=== PATIENT | female | born 1965 | race Caucasian/White ===

== ENCOUNTER 2023-05-26 07:52 | Outpatient (CLI) | payer OTHER, SELFPAY | END 2023-05-26 07:53 | disposition home or self-care (01) | LOC: NFLDREF 05-28 10:18 | PROVIDERS: PCP Internal Medicine; Referring Provider Internal Medicine; Visit Provider Internal Medicine | DX: E78.5 Hyperlipidemia, unspecified (principal) | CPT/HCPCS: 80061 ==

== ENCOUNTER 2023-09-20 16:05 | Outpatient (CLI) | payer OTHER, SELFPAY ==
--- OUTSIDE RECORDS SUMMARY | 2023-09-20 16:08 | XMS_ITS | Clinical Summary ---
Author Organization [employer] Address [place], [place] [address] Care Team Providers Care Coremaker Pipe Name Role Phone Abilio [facility] Phys Of Primary Care Provider Un available Allergies Active Allergy Reactions Criticality Noted Date Comments Budesonide Headache 01/03/2009 Latex Rash 12/20/2008 Polyethylene Glycol 3350 Anaphylaxis High 04/02/2021 Morphine Rash 04/24/2010 Penicillins Rash 04/28/2008 Oxycodone-Acetaminophen 12/20/2008 Breathing problems Sulfa (Sulfonamide Antibiotics) Rash 04/28/2008 Hydrocodone-Acetaminoph en *None-Radiology Only 12/20/2008 Breathing problems Medications Medication Sig Dispensed Refills Start Date End Date Status cetirizine (ZYRTEC) 10 mg tablet Take 1 tablet by mouth once daily. 0 12/26/2012 Active omega-3 fatty acids (FISH OIL) cap Active cholecalciferol, Vitamin D3, 10,000 unit capsule Daily Active montelukast (SINGULAIR) 10 mg tabletIndications:A llergic rhinitis, unspecified seasonality, unspecified trigger Take 1 Tablet (10 mg) by mouth every morning. 90 Tablet 3 03/13/2021 Active EPINEPHrine (Auvi-Q) 0.3 mg/0.3 mL injectionIndication s:Multiple environmental allergies,History of drug-induced anaphylaxis Inject 0.3 mg intramuscular one time if needed for Allergic Reaction. Inject 0.3 mg intramuscular one time if needed for Allergic Reaction for up to 1 dose. 2 Each 04/07/2021 Active fluticasone propion-salmeteroL (Advair HFA) 115-21 mcg/actuation inhalerIndications: Asthma, unspecified asthma severity, unspecified whether complicated, unspecified whether persistent Inhale 1 Puff by mouth every 12 hours. 1 Each 3 04/02/2022 Active pantoprazole (PROTONIX) 40 mg delayed-release tabletIndications:G astroesophageal reflux disease, unspecified whether esophagitis present Take 1 Tablet (40 mg) by mouth once daily before a meal. 90 Tablet 3 04/02/2022 Active linaCLOtide (Linzess) 145 mcg cap capsuleIndications: Constipation, unspecified constipation type Take 1 Capsule (145 mcg) by mouth once daily. 30 Capsule 11 07/22/2022 Active albuterol HFA (ProAir HFA) 90 mcg/actuation inhalerIndications: Asthma, unspecified asthma severity, unspecified whether complicated, unspecified whether persistent Inhale 2 Puffs by mouth every 4 hours if needed for Shortness of Breath 1st choice. 1 Each 3 08/13/2022 Active albuterol (PROVENTIL) 0.083 % neb solutionIndications :SOB (shortness of breath) Inhale 3 mL (2.5 mg) via a nebulizer every 6 hours if needed for Wheezing 2nd choice. 90 mL 3 08/13/2022 Active fluticasone (50 mcg per actuation) nasal solution (FLONASE)Indication s:Recurrent maxillary sinusitis INHALE 1 SPRAY IN EACH NOSTRIL DAILY 48 g 3 10/07/2022 Active durable medical equipment (DME)Indications:Pl loulou fasciitis, left Custom functional orthotics, history of plantar fasciitis 1 Each 01/05/2023 Active cyclobenzaprine (FLEXERIL) 5 mg tabletIndications:F ibromyalgia TAKE 1 TABLET (5 MG) BY MOUTH AT BEDTIME IF NEEDED FOR MUSCLE SPASM. 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 Has been seen at [facility] and recommended conservative treatment at this time. Allergic rhinitis 08/13/2014 GERD (gastroesophageal reflux disease) 4 Overview: EGD 12/2013 normal, continue proton pump inhibitor and ranitadine Asthma 12/26/2012 H/O craniotomy 12/09/2012 Diverticulitis 06/19/2011 Cholesteatoma of ear, right 04/16/2011 Endometriosis 04/16/2011 Intestinal infection due to Clostridium difficil e 12/24/2008 Crohn's disease of large bowel 12/24/2008 Overview: Colonoscopy 05/2010 normal repeat in 5 years Colonoscopy 03/2020 polyp, no active Crohn's disease, repeat in 5 years Moderate mixed hyperlipidemia not requiring stat in therapy 08/20/2006 Encounters Date Type Department Care Team Description 09/20/2023 Refill [facility] [address] [place] [address] Carmella Joshua MD Refill Request (Advair Hfa) from Last 3 Months Immunizations Name Administration Dates Next Due COVID-19 vaccine ([facility] NTAlta Analog 30mcg/0.3mL) PF, MDV 04/02/2020,03/05/2020 Influenza RIV4 (Age 18+ Year s) PRESERV FREE 11/30/2018 Influenza Virus, Unspecified 12/13/2016,12/14/19 16 Influenza, IIV3 (Age 6-35 mos) 12/20/2019,2017 Influenza, IIV4 01/20/2022, 9,12/24/2016,2015,12/09/2011 Influenza, IIV4 (=>6mos) MDV 11/27/2020 Tdap 10/23/2016,04/21/2005 Zoster (Shingrix-RZV, recombinant) 06/06/2020, Zoster (Zostavax-ZVL, live) 01/29/2015 Family History Medical History Relation Name Comments Cancer-breast No Family History Cancer-ovarian No Family History Social History Tobacco Use Types Packs/Day Years Used Date Smoking Tobacco: Never Smokeless Tobacco: Never Tobacco Cessation:Counseling Given: No Alcohol Use Standard Drinks/Week Comments Yes 0 (1 standard drink = 0.6 oz pur e alcohol) occ PHQ-2 Answer Date Recorded PHQ-2 TOTAL SCORE 0 04/02/2022 Social Connections Answer Date Recorded Frequency of Communication with Friends and Fami ly Not on file 02/19/2021 Financial Resource Strain Answer Date R ecorded Difficulty of Paying Living Expenses Not on file 02/19/2021 Difficulty of Paying Living Expenses Not on file 02/19/2021 Sex and Gender Information Value Date Recorded Sex Assigned at Not on file Gender Identity Not on file Sexual Orientation Not on file Obstetrics History Last Filed Vital Signs Vital Sign Reading Time Taken Comments Blood Pressure 143/86 07/22/2022 2:33 PM CDT Pulse 82 07/22/2022 2:33 PM CDT Temperature 37.1 ??C (98.7 ??F) 04/02/2021 2:15 PM CS T Respiratory Rate - - Oxygen Saturation 96% 07/22/2022 2:33 PM CDT Inhaled Oxygen Concentration - - Weight 70.2 kg (154 lb 12.8 oz) 07/22/2022 2:33 PM CDT Height 160.8 cm (5' 3.31) 04/02/2022 9:10 AM CS T Body Mass Index 27.16 04/02/2022 9:10 AM DIRECTOR BIOSTATISTICS Plan of Treatment Health Maintenance Due Date Last Done Comments HIV for age 15-65 08/26/1979 COVID-19 vaccine series ( season) 2022 04/02/2020, 03/05/2020 BMI (ht and wt on same day) for age 18+ 04/02/2023 04/02/2022, 10/30/2021, 03/13/2021, Additional history exists Depression screening for age 12+ 04/02/2023 04/02/2022, 03/13/2021, 02/09/2020, Additional history exists Mammogram for age 45-75 04/16/2023 04/16/19 23, 03/13/2021, 02/15/2020, Additional history exists Influenza for age 50-64 10/31/2023 01/21/20 22, 11/27/2020, 12/07/2018, Additional history exists Colonoscopy through age 75 03/28/202503/28, 03/28/2020, 03/28/2020, Additional history exists Pap test for age 21-65 04/02/2025 , 10/23/2016, 10/23/2016, Additional history exists Tetanus booster 10/23/2026 10/23/2016, 04/21/2005 Lipids for age 45-75 04/08/2027 04/08/2022, 03/13/2021, 02/08/2020, Additional history exists Tdap Completed 10/23/2016, 04/21/2005 Hepatitis C screening for age 18-79 Completed 02/08/2020 Zoster (shingles) series for age 50+ Completed 06/06/2020, 02/15/2020, 01/29/2015 Pneumococcal series for age 6-64 Aged Out No longer eligible based on patient's age to complete this topic Procedures Procedure Name Priority Date/Time Associated Diagnosis Comments XR MAMMO OLAYINKA BILAT SCREEN Routine 04/16/2022 11:11 AM DIRECTOR BIOSTATISTICS Visit for screening mammogram LC LIPID PANEL AND CHOL/HDL RATIO Routine 04/08/2022 7:12 AM DIRECTOR BIOSTATISTICS Hyperlipidemia, unspecified hyperlipidemia type HPV THIN PREP Routine 04/02/2022 10:00 AM DIRECTOR BIOSTATISTICS Screening for cervical cancer COLONOSCOPY SCREENING Routine 03/28/2020 8:29 AM DIRECTOR BIOSTATISTICS Polyp of colon, unspecified part of colon, unspecified type ANTI HCV Routine 02/08/2020 10:57 AM DIRECTOR BIOSTATISTICS Encounter for hepatitis C screening test for low risk patient from Last 3 Months or Most Recently Relevant to Health Maintenance Results * XR MAMMO OLAYINKA BILAT SCREEN (04/16/2022 11:11 AM DIRECTOR BIOSTATISTICS) Anatomical Region Laterality Modality BREASTS, Breast Left, Breast Right Bilateral Mammography Impressions 04/16/2022 3:55 PM DIRECTOR BIOSTATISTICS ??There is no radiographic evidence for malignancy. ??Recommend annual mammograms. MAMMOGRAM ASSESSMENT: ??ACR 1 Negative PATIENTS: You will also receive a letter with your examination results in an easy to read format. ??If you have questions about your results, please contact your referring provider. Narrative 04/16/2022 3:55 PM DIRECTOR BIOSTATISTICS For Patients: As a result of the Century Cures Act, medical imaging exams and procedure reports are released immediately into your electronic medical record. You may view this report before your referring provider. If you have questions, please contact your health care provider. XR MAMMO OLAYINKA BILAT SCREEN [[id number]] CLINICAL HISTORY: ??This is an asymptomatic 56 y.o. patient. INDICATION FOR EXAM: Mammogram Screening. TECHNIQUE: CC & MLO views were obtained. ??This study was evaluated with the assistance of Computer-Aided Detection. Breast Tomosynthesis was used in interpretation. COMPARISON FILM: Yes 03/13/21 [facility] 02/15/20 [facility] FINDINGS: ??The breasts have scattered areas of fibroglandular density. There are no dominant masses, suspicious micro calcifications or areas of architectural distortion. Carmella Joshua MD MAMMO * (ABNORMAL) LC LIPID PANEL AND CHOL/HDL RATIO (04/08/2022 7:12 AM DIRECTOR BIOSTATISTICS) Cholesterol, Total 252(H) 100 - 199 mg/dL 04/10/2022 11:09 AM [facility] Triglycerides 120 0 - 149 mg/dL 04/10/2022 11:09 AM [facility] ([facility]) HDL Cholesterol 65 >39 mg/dL 3 11:09 AM [facility] ([facility]) VLDL Cholesterol Tuan 21 5 - 40 mg/dL 04/10/2022 11:09 AM [facility] ([facility]) LDL Chol Calc (NIH) 166(H) 0 - 99 mg/dL 04/10/2022 11:09 AM [facility] ([facility]) T. Chol/HDL Ratio 3.9 0.0 - 4.4 ratio 04/10/2022 11:09 AM DIRECTOR BIOSTATISTICS [facility] ([facility]) Comment: ?T. Chol/HDL Ratio ?Men ??Women ?1/2 Avg.Risk ??3.4 ?3.3 ?Avg.Risk ??5.0 ?4.4 ? 2X Avg.Risk ??9.6 ?7.1 ? 3X Avg.Risk 23.4 ?? 11.0 Blood BLOOD SPECIMEN / Unknown Venipuncture / Unknown 04/08/2022 7:12 AM DIRECTOR BIOSTATISTICS 04/08/2022 7:15 AM DIRECTOR BIOSTATISTICS Narrative [facility] ([facility]) - 04/10/2022 11:09 AM DIRECTOR BIOSTATISTICS Performed at: [facility] [address] [place], [place] ??[id number] Snipper: Chito Mcmillan MD, Phone: ??[phone] Carmella Joshua MD SEND OUTS [facility] ([facility]) [facility] [place] [address], [place] * HPV HIGH RISK (04/02/2022 10:00 AM DIRECTOR BIOSTATISTICS) TYPE 16 Negative Negative 04/06/2022 2:36 PM DIRECTOR BIOSTATISTICS [facility] TYPE 18 Negative Negative 04/06/2022 2:[address] [facility] OTHER HIGH RISK TYPES Negative Negative 04/06/2022 2:[address] [facility] Other (Cervical) Non-Blood / Unknown 04/02/2022 10:00 AM DIRECTOR BIOSTATISTICS 04/02/2022 5:09 PM DIRECTOR BIOSTATISTICS Narrative [facility] - 04/06/2022 2:36 PM DIRECTOR BIOSTATISTICS HPV types 16, 18, 31, 33, 35, 39, 45, 51, 52, 56, 58, 59, 66 and 68 DNA were undetectable or below the pre-set threshold. Methodology: [employer] 4800 HPV Test Carmella Joshua MD MICROBIOLOGY [facility] [address] [place] [address], [place] * COLONOSCOPY (03/28/2020 8:58 AM DIRECTOR BIOSTATISTICS) 03/28/2020 8:58 AM DIRECTOR BIOSTATISTICS Narrative Transcriptions Zane Buchanan MD - 03/28/2020 10:01 AM CST Patient Name: Sun Winter Procedure Date: 03/28/2020 Gender: Female Date of : 1965 Admit Type: Outpatient Procedure: Colonoscopy Proceduralist: Zane Buchanan MD , Mary Sapp (Nurse) Referring MD: Carmella Joshua Indications/Pre-Op Diagnosis: High risk colon cancer surveillance:Personal history of sessile serrated colon polyp(less than 10 mm in size) with no dysplasia, High risk colon cancer surveillance: Crohn'scolitis of 8 (or more) years duration with one-third (or more) of the colon involved Medications: Fentanyl 100 micrograms IV, Midazolam 3 mgIV, The level of sedation administered wasmoderate Procedure Description: The patient had risks, benefits and alternatives explained to andgave informed consent. The patient had a stable cardiopulmonary status and judged an adequate candidate for conscious sedation. The PCF-Q290AL [id number] was passed through the anus and advanced to 4cm into the ileum. The colonoscopy was performed without difficulty. The patient tolerated the procedure well. The quality of the bowel preparation was good. The terminal ileum, ileocecal valve,appendiceal orifice, and rectum were photographed. Complications: No immediate complications. Estimated Blood Loss & Specimen: Estimated blood loss: none. Specimen collected - Yes and sent to Laboratory Findings: The perianal and digital rectal examinations were normal. The terminal ileum appeared normal. A 1 mm polyp was found in the cecum. The polyp was sessile. The polyp was removed with a cold biopsy forceps. Resection and retrieval were complete. A 2 mm polyp was found in the proximal ascending colon. The polyp was sessile. The polyp was removed with a cold biopsy forceps. Resectionand retrieval were complete. A few small-mouthed diverticula were found in the sigmoid colon and descending colon. There was evidence of a prior end-to-end colo-colonic anastomosis inthe recto-sigmoid colon. This was patent and was characterized by healthy appearing mucosa. These biopsies were obtained randomly (in a non-targeted manner) for Crohn's disease surveillance. The exam was otherwise without abnormality on direct and retroflexion views. Impressions/Post-Op Diagnosis: - The examined portion of the ileum was normal. - One 1 mm polyp in the cecum, removed with a cold biopsy forceps. Resected and retrieved. - One 2 mm polyp in the proximal ascending colon, removed with a cold biopsy forceps. Resected and retrieved. - Mild diverticulosis in the sigmoid colon and in the descendingcolon. - Patent end-to-end colo-colonic anastomosis, characterized byhealthy appearing mucosa. - The examination was otherwise normal on direct and retroflexionviews. Recommendation: - Patient has a contact number available for emergencies. The signsand symptoms of potential delayed complications were discussed with the patient. Return to normal activities tomorrow. Written discharge instructions were provided to the patient. - Resume previous diet. - Continue present medications. - Await pathology results. - Repeat colonoscopy for surveillance based on pathology results. Moderate Sedation: Moderate (conscious) sedation was administered by the endoscopy nurse and supervised by the endoscopist. The following parameters were monitored: oxygen saturation, heart rate, respiratory rate, blood pressure, adequacy of pulmonary ventilation and reponse to care. Please refer to the patient's medical record flowsheets and nursing notes for moderate sedation details. Total physician intraservice time was 26 minutes. Zane Buchanan MD 03/28/2020 10:01:25 AM This report has been signed electronically. Note Initiated On: 03/28/2020 8:58 AM Scope In: 9:26:52 AM Scope Withdrawal Time 0 hours 19 minutes 5 seconds Scope Out: 9:50:27 AM Zane Buchanan MD PROCEDURE ORD * ANTI HCV (02/08/2020 10:57 AM DIRECTOR BIOSTATISTICS) HEPATITIS C ANTIBODY Non-React breanna Non-React breanna 02/08/2020 6:14 PM DIRECTOR BIOSTATISTICS [facility] Comment:Antibodies to HCV no t detected; does not exclude the possibility of exposure to HCV. Blood BLOOD SPECIMEN / Unknown Venipuncture / Unknown 02/08/2020 10:57 AM DIRECTOR BIOSTATISTICS 02/08/2020 10:57 AM DIRECTOR BIOSTATISTICS Carmella Joshua MD [facility] [address] [place] [address], [place] from Last 3 Months or Most Recently Relevant to Health Maintenance Care Teams Coremaker Pipe Relationship Specialty Start Date End Date Urbano Knox Of PCP - General 05/19/23
== END 2023-09-20 16:06 | disposition home or self-care (01) ==
PROVIDERS: PCP Internal Medicine; Visit Provider Internal Medicine
DX: L65.9 Nonscarring hair loss, unspecified (principal)
CPT/HCPCS: 80053; 82607; 82728; 83735; 84443

== ENCOUNTER 2023-09-21 16:26 | Outpatient (CLI) | payer OTHER, SELFPAY ==
--- OUTSIDE RECORDS SUMMARY | 2023-09-21 16:28 | XMS_ITS | Clinical Summary ---
Author Organization [employer] Address [place], [place] [address] Care Team Providers Care Oracle E Business Developer Name Role Phone Abilio [facility] Phys Of Primary Care Provider Un available [...] Associated with vertigo. Has been seen at [facility] and recommended conservative treatment at this time. [...] Type Department Care Team Description 09/20/2023 Refill [facility] [address] [place] [address] Carmella Joshua MD Refill Request (Advair Hfa) from Last 3 Months Immunizations Name Administration Dates Next Due COVID-19 vaccine ([employer] NTPivot3 30mcg/0.3mL) PF, MDV 04/02/2020,03/05/2020 Influenza RIV4 (Age [...] Body Mass Index 27.16 04/02/2022 9:10 AM BROOM BUNDLER Plan of Treatment Health Maintenance Due Date [...] OLAYINKA BILAT SCREEN Routine 04/16/2022 11:11 AM BROOM BUNDLER Visit for screening mammogram LC LIPID PANEL AND CHOL/HDL RATIO Routine 04/08/2022 7:12 AM BROOM BUNDLER Hyperlipidemia, unspecified hyperlipidemia type HPV THIN PREP Routine 04/02/2022 10:00 AM BROOM BUNDLER Screening for cervical cancer COLONOSCOPY SCREENING Routine 03/28/2020 8:29 AM BROOM BUNDLER Polyp of colon, unspecified part of colon, unspecified type ANTI HCV Routine 02/08/2020 10:57 AM BROOM BUNDLER Encounter for hepatitis C screening test for low risk patient from Last 3 Months or Most Recently Relevant to Health Maintenance Results * XR MAMMO OLAYINKA BILAT SCREEN (04/16/2022 11:11 AM BROOM BUNDLER) Anatomical Region Laterality Modality BREASTS, Breast Left, Breast Right Bilateral Mammography Impressions 04/16/2022 3:55 PM BROOM BUNDLER ??There is no radiographic evidence for malignancy. ??Recommend annual mammograms. MAMMOGRAM ASSESSMENT: ??ACR 1 Negative PATIENTS: You will also receive a letter with your examination results in an easy to read format. ??If you have questions about your results, please contact your referring provider. Narrative 04/16/2022 3:55 PM BROOM BUNDLER For Patients: As a result of the Century Cures Act, medical imaging exams and procedure reports are released immediately into your electronic medical record. You may view this report before your referring provider. If you have questions, please contact your health care provider. XR MAMMO OLAYINKA BILAT SCREEN [[id number]] CLINICAL HISTORY: ??This is an asymptomatic 56 [...] PANEL AND CHOL/HDL RATIO (04/08/2022 7:12 AM BROOM BUNDLER) Cholesterol, Total 252(H) 100 - 199 mg/dL 04/10/2022 11:09 AM [facility] ([facility]) Triglycerides 120 0 - 149 mg/dL 04/10/2022 11:09 AM [facility] ([facility]) HDL Cholesterol 65 >39 mg/dL 3 11:09 AM [facility] ([facility]) VLDL Cholesterol Tuan 21 5 - 40 mg/dL 04/10/2022 11:09 AM [facility] ([facility]) LDL Chol Calc (NIH) 166(H) 0 - 99 mg/dL 04/10/2022 11:09 AM [facility] ([facility]) T. Chol/HDL Ratio 3.9 0.0 - 4.4 ratio 04/10/2022 11:09 AM BROOM BUNDLER [facility] ([facility]) Comment: ?T. Chol/HDL Ratio ?Men ??Women ?1/2 Avg.Risk ??3.4 ?3.3 ?Avg.Risk ??5.0 ?4.4 ? 2X Avg.Risk ??9.6 ?7.1 ? 3X Avg.Risk 23.4 ?? 11.0 Blood BLOOD SPECIMEN / Unknown Venipuncture / Unknown 04/08/2022 7:12 AM BROOM BUNDLER 04/08/2022 7:15 AM BROOM BUNDLER Narrative [facility] ([facility]) - 04/10/2022 11:09 AM BROOM BUNDLER Performed at: ??01 - [facility] [address], [place] ??[id number] Assistant Professor Of Education: Chito Mcmillan MD, Phone: ??[phone] Carmella Joshua MD SEND OUTS [facility] ([facility]) [facility] [place] [address], [place] * HPV HIGH RISK (04/02/2022 10:00 AM BROOM BUNDLER) TYPE 16 Negative Negative 04/06/2022 2:36 PM BROOM BUNDLER [facility] TYPE 18 Negative Negative 04/06/2022 2:36 PM BROOM BUNDLER [facility] OTHER HIGH RISK TYPES Negative Negative 04/06/2022 2:36 PM BROOM BUNDLER [facility] Other (Cervical) Non-Blood / Unknown 04/02/2022 10:00 AM BROOM BUNDLER 04/02/2022 5:09 PM BROOM BUNDLER Narrative [facility] - 04/06/2022 2:36 PM BROOM BUNDLER HPV types 16, 18, 31, 33, 35, 39, 45, 51, 52, 56, 58, 59, 66 and 68 DNA were undetectable or below the pre-set threshold. Methodology: [employer] 4800 HPV Test Carmella Joshua MD MICROBIOLOGY [facility] [address] [place] [address], [place] * COLONOSCOPY (03/28/2020 8:58 AM BROOM BUNDLER) 03/28/2020 8:58 AM BROOM BUNDLER Narrative Transcriptions Zane Buchanan MD - 03/28/2020 [...] adequate candidate for conscious sedation. The PCF-Q290AL [id number] was passed through the anus and advanced [...] ORD * ANTI HCV (02/08/2020 10:57 AM BROOM BUNDLER) HEPATITIS C ANTIBODY Non-React breanna Non-React breanna 02/08/2020 6:14 PM BROOM BUNDLER [facility] Comment:Antibodies to HCV no t detected; does not exclude the possibility of exposure to HCV. Blood BLOOD SPECIMEN / Unknown Venipuncture / Unknown 02/08/2020 10:57 AM BROOM BUNDLER 02/08/2020 10:57 AM BROOM BUNDLER Carmella Joshua MD [facility] [address] [place] [address], [place] from Last 3 Months or Most Recently Relevant to Health Maintenance Care Teams Oracle E Business Developer Relationship Specialty Start Date End Date Ubrano Knox Of PCP - General 05/19/23
--- NOTE | 2023-09-21 16:40 | CRLHL7_ITS ---
For Patients: As a result of the Century Cures Act, medical imaging exams and procedure reports are released immediately into your electronic medical record. You may view this report before your referring provider. If you have questions, please contact your health care provider. BILATERAL SCREENING MAMMOGRAM WITH COMPUTER-AIDED DETECTION AND TOMOSYNTHESIS TECHNIQUE: CC and MLO views were obtained. These mammographic images have been obtained using full-field digital technique. These mammographic images were interpreted with the benefit of computer-aided detection. Breast tomosynthesis was used in this interpretation. COMPARISON FILM: 02/12/19, 12/21/17, 11/11/16. FINDINGS: There are scattered areas of fibroglandular density. IMPRESSION: There is no radiographic evidence for malignancy. ASSESSMENT: BI-RADS Category 2: Benign RECOMMENDATION: Routine screening mammogram in 1 year. A lay language report of this examination will be provided to the patient. BETHEL NINO M.D. Diagnostic Radiologist [email or web address] Transcribed: 2:[address]/Dictated by: Bethel Nino MD @ 09/22/2023 11:25:00 AM (Electronically Signed)
== END 2023-09-21 16:27 | disposition home or self-care (01) ==
LOC: MAMMO 16:27
PROVIDERS: PCP Internal Medicine; Visit Provider Internal Medicine
DX: Z12.31 Encounter for screening mammogram for malignant neoplasm of breast (principal)
CPT/HCPCS: 77063; 77067